=== PATIENT | male | born 1990 | race Caucasian/White ===

== ENCOUNTER 2018-11-05 08:54 | Emergency (ER) | payer SELFPAY ==
[~2018-11-05] VITALS: Ht 170.2 cm; Wt 56.7 kg
[2018-11-05 08:56] VITALS: BP 134/87
--- NOTE | 2018-11-05 09:00 | NUR ---
PATIENT PRESENTS TO THE ED WITH C/O PENILE PAIN. PATIENT STATES HE TRIED TO MAKE HIS ERECTION SUBSIDE WHEN HE HEARD A POP FOLLOWED BY SWELLING AND DISCOLORATION. PATIENT IS ABLE TO VOID WITH NO BLOOD IN URINE. DENIES OTHER MEDICAL HX.
--- NOTE | 2018-11-05 09:01 | NUR ---
URINE CUP HANDED TO PT FOR SAMPLE
--- NOTE | 2018-11-05 09:37 | NUR ---
Patient being evaluated by physician at bedside.
[2018-11-05 09:38] LABS: APPEARANCE,URINE CLOUDY (CLEAR); BILIRUBIN,URINE NEGATIVE (NEGATIVE); BLOOD, URINE NEGATIVE (NEGATIVE); COLOR,URINE YELLOW (YELLOW); LEUKOCYTE ESTERASE ,URINE NEGATIVE (NEGATIVE); NITRITE, URINE NEGATIVE (NEGATIVE); PH,URINE 7.5 (5.0-9.0); UGLUCOSE NEGATIVE (NEGATIVE)
[2018-11-05] MEDS ORDERED: IBUPROFEN 800 MG TAB PO ONE (09:45)
[2018-11-05 09:52] LABS: RBC,URINE 0-5 (RARE) /HPF (0-5); WBC,URINE 0-5 (RARE) /HPF (0-5)
--- NOTE | 2018-11-05 09:59 | NUR ---
US AT BEDSIDE
[2018-11-05 11:07] VITALS: BP 127/72
== END 2018-11-05 11:00 | disposition home or self-care (01) ==
LOC: MED 08:54
DX: N48.89 Other specified disorders of penis (principal)
CPT/HCPCS: 76870; 81001; 99284; Q0092